=== PATIENT | female | born 1995 ===

== ENCOUNTER 2016-10-10 09:45 | Day surgery (SDC) | payer OTHER ==
[~2016-10-10 09:45] MED LIST: Buffered Lidocaine 1% SYRIN* 3 ML/SYR SYRINGE INTRADERM ONE
[2016-10-10 10:10] LABS: Manual Entry Verification HAN0055; UR Preg Internal Control QC Line Present
[2016-10-10] MEDS ORDERED: Lidocaine 1% INJ* 10 MG/ML 30 ML SDV ONE (10:37)
[2016-10-10] MEDS ORDERED: Lidocaine 1% MPF wEPI 200,000* 30 ML SDV ONE ×2 (10:39→11:13)
[2016-10-10] MEDS ORDERED: Lidocain 1% EPI 1:100,000 * 30 ML MDV ONE (10:39)
[2016-10-10] MEDS ORDERED: fentaNYL* 50 MCG/ML 2 ML VIAL (100 MCG VIAL) ONE (10:56)
[2016-10-10] MEDS ORDERED: Midazolam* 1 MG/ML 2 ML VIAL (2 MG) ONE (10:56)
[2016-10-10] MEDS ORDERED: Propofol* 10 MG/ML 20 ML BTL IV PUSH ONE (10:58)
[2016-10-10] MEDS ORDERED: fentaNYL* 50 MCG/ML 2 ML VIAL (100 MCG VIAL) IV PRN (11:11)
[2016-10-10] MEDS ORDERED: Conjugated Estrogens VAG CM* 42.5 gm TUBE ONE (11:23)
[2016-10-10] MEDS ORDERED: Silver Nitrate/Potassium Nitr* 1 EA STICK ONE (11:38)
[2016-10-10 12:17] VITALS: BP 107/76
--- NOTE | 2016-10-11 05:56 | OP ---
OPERATIVE REPORT: DATE OF OPERATION: 10/10/16 DATE OF : 89 SURGEON: Irvin El MD. ANESTHESIA: Sedation with local anesthetic. 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 OPERATIVE PROCEDURE: Hymenotomy. FINDINGS: On exam under anesthesia, the hymen was intact along the side and there was a narrow open ing. DESCRIPTION OF PROCEDURE: The patient identified, procedure identified as a hymenotomy. The patien t was taken to the operating room, prepped and draped in the usual fashion in dorsal lithotomy posit ion under sedation. Lidocaine 1% with epi was injected at the area of the hymen. Small incisions w ere made along the hymen in a stellate pattern and small portions were excised. Areas of bleeding w ere sutured using 3-0 Polysorb in a running locked stitch. Bovie was used in a few spots to provide further release. The vagina easily accepted 2 fingers at the end of the procedure. Good hemostasi s verified. All sponge and needle counts were correct. The patient returned to recovery room in st able condition. [id number] #: [id number]
== END 2016-10-10 12:19 | disposition home or self-care (01) ==
LOC: OR 09:45
PROVIDERS: ATTEND Obstetrics & Gynecology
DX: Q52.3 Imperforate hymen (principal)
CPT/HCPCS: 81025; A9270-GY; J2001; J2250; J2704; J3010